=== PATIENT | male | born 1950 | race African-American/Black ===

== ENCOUNTER 2019-06-15 08:02 | Inpatient (IN) | payer MEDICARE ==
[2019-06-15 14:23] VITALS: BMI 35.2
[2019-06-15] MEDS ORDERED: Dextrose 5% in Water 1,000 ML IV PRN (15:04)
[2019-06-15] MEDS ORDERED: Dextrose 50% Abboject 50 ML SYRINGE SLOW IVP PRN (15:04)
[2019-06-15] MEDS ORDERED: HumaLOG 300 UNITS/3 ML VIAL SC PRN (15:04)
[2019-06-15 15:13] LABS: #Basophils 0.1 thou/uL (0.0-0.2); #Eosinphils 0.3 thou/uL (0.0-0.7); #Lymphocytes 2.2 thou/uL (1.20-3.40); #Monocytes 0.5 thou/uL (0.11-0.59); #Neutrophils 4.6 thou/uL (1.40-6.50); %Basophils 0.7 % (0.0-1.0); %Eosinophils 3.5 % (0.0-10.0); %Lymphocytes 28.7 % (21.0-51.0); %Neutrophils 60.2 % (42.0-75.0); Hemoglobin 11.9 g/dL (14.0-18.0); Mean Corpuscular HGB CONC 32.8 g/dL (32.0-36.0); Mean Corpuscular Hemoglobin 26.3 pg (27.0-31.0); Mean Corpuscular Volume 80.1 fL (78.0-98.0); Mean Platelet Volume 7.1 fL (7.4-10.4); Platelet Count 341 thou/uL (130-400); RBC Distribution Width 13.6 % (11.5-14.5); Red Blood Cell (RBC) Count 4.52 mill/uL (4.70-6.10); White Blood Cell (WBC) Count 7.7 thou/uL (4.8-10.8)
--- NOTE | 2019-06-15 15:14 | PDOC.HHP ---
Hospitalist HPI - History of Present Illness Right foot infection History of Present Illness: Mr. Mcallister states he is being transferred due to right foot infection going into his bone. At this present time he denies any complaints. States initially his entire foot was swollen and warm extending up to his mid calf. That has completely resolved. She has continued to have dressing changes at [place] before being transferred here. States he had initially stepped on a stable that was in his shoe and he removed it himself. Xrays done at [place] had shown errosions involving the 1st MTP joint, concerning for osteomyelitis. He has been on abx with Zosyn and Vanc. Per Dr. Garcia patient has been transferred for surgical assessment, +/- cardiac clearance. If no debridement required, patient would still need to be transferred for PICC line placement as he will likely require extensive course of antibiotics. Cultures obtained were positive for S. Aureus and Enterobacter cloacae complex. Hospitalist ROS - Review of Systems Constitutional: denies: fever, chills, sweats, weakness, malaise, other Eyes: denies: pain, vision change, conjunctivae inflammation, eyelid inflammation, redness, other ENT: denies: ear pain, ear discharge, nose pain, nose discharge, nose congestion , mouth pain, mouth swelling, throat pain, throat swelling, other Respiratory: denies: cough, dry, shortness of breath, hemoptysis, SOB with excertion, pleuritic pain, sputum, wheezing, other Cardiovascular: denies: chest pain, palpitations, orthopnea, paroxysmal noc. dyspnea, edema, light headedness, other Gastrointestinal: denies: nausea, vomiting, abdominal pain, diarrhea, constipation, melena, hematochezia, other Genitourinary: denies: dysuria, frequency, incontinence, hematuria, retention, other Musculoskeletal: denies: neck pain, shoulder pain, arm pain, back pain, hand pain, leg pain, foot pain, other Skin: denies: rash, lesions, nestor, bruising, other Neurological: denies: weakness, numbness, incoordination, change in speech, confusion, seizures, other Hospitalist History - Past Medical History Cardiac: reports: CAD, CHF, HTN, Hyperlipidemia Endocrine: reports: Diabetes (IDDM) - Past Surgical History Past Surgical History: reports: no pertinent history - Social History Smoking Status: Never smoker Alcohol: reports: None Drugs: reports: none Living Situation: With Family Activity level: independent ambulation - Exam General Appearance: NAD, awake alert Eye: PERRL, anicteric sclera ENT: normocephalic atraumatic, no oropharyngeal lesions, moist mucosa Neck: supple, symmetric, no JVD, no thyromegaly, no lymphadenopathy, no carotid bruit Heart: RRR, no murmur, no gallops, no rubs, normal peripheral pulses Respiratory: CTAB, no wheezes, no rales, no ronchi, normal chest expansion, no tachypnea, normal percussion Gastrointestinal: soft, non-tender, non-distended, normal bowel sounds, no palpable masses Gastrointestinal - other findings: obese Extremities: no cyanosis, no clubbing, no edema Extremities - other findings: dressing to base of right great toe, no erythema or swelling Skin: normal turgor, no lesions, no rashes Neurological: cranial nerve grossly intact, normal sensation to touch, no weakness, no focal deficits, no new deficit Musculoskeletal: normal tone, normal strength, no muscle wasting Psychiatric: normal affect, normal behavior, A&O x 3 Hospitalist Results - Radiology Interpretation Other Status: report reviewed by or Hospitalist H&P A/P - Problem (1) Cellulitis of right lower extremity Code(s): L03.115 - CELLULITIS OF RIGHT LOWER LIMB Status: Acute (2) Diabetic infection of right foot Code(s): E11.628 - TYPE 2 DIABETES MELLITUS WITH OTHER SKIN COMPLICATIONS; L08.9 - LOCAL INFECTION OF THE SKIN AND SUBCUTANEOUS TISSUE, UNSP Status: Acute (3) Coronary artery disease Code(s): I25.10 - ATHSCL HEART DISEASE OF [place] CORONARY ARTERY W/O ANG PCTRS Status: Chronic (4) Diabetes mellitus type 2 with neurological manifestations Code(s): E11.49 - TYPE 2 DIABETES W OTH DIABETIC NEUROLOGICAL COMPLICATION Status: Chronic (5) Dyslipidemia Code(s): E78.5 - HYPERLIPIDEMIA, UNSPECIFIED Status: Chronic (6) Essential hypertension Code(s): I10 - ESSENTIAL (PRIMARY) HYPERTENSION Status: Chronic (7) Chronic CHF Code(s): I50.9 - HEART FAILURE, UNSPECIFIED Status: Chronic - Plan Plan: Continue IV Abx. Pharmacy to dose. Consult to Surgery re: concern for osteomyelitis. Consult wound care. Further imaging as per surgical team. Consult Cardiology re: surgical clearance Consult Dr. Nieto (infectious disease) Obtain repeat labs including lactic acid and BNP. Continue gentle hydration. Monitor BP and glucose. Resume home meds once verified. CODE STATUS FULL Surrogate decision maker is his :
[2019-06-15 15:31] LABS: Lactic Acid 1.6 mmol/L (0.5-2.2)
[2019-06-15 15:35] LABS: ALT (SGPT) 29 U/L (8-55); AST (SGOT) 18 U/L (5-34); Albumin 3.9 g/dL (3.4-4.8); Alkaline Phosphatase 128 U/L (40-110); Anion Gap 12 mmol/L (10-20); BUN (Urea Nitrogen) 7 mg/dL (8.4-25.7); Bilirubin, Total 0.3 mg/dL (0.2-1.2); Calc. Creatinine Clearance 117 mL/min (70-130); Calcium 9.1 mg/dL (7.8-10.44); Carbon Dioxide 26 mmol/L (23-31); Chloride 105 mmol/L (98-107); Estimated GFR-MDRD Greater than 90; Globulin 3.3 g/dL (2.4-3.5); Glucose 196 mg/dL (80-115); Magnesium 2.1 mg/dL (1.6-2.6); Potassium 3.9 mmol/L (3.5-5.1); Protein, Total 7.2 g/dL (5.8-8.1); Sodium 139 mmol/L (136-145)
[2019-06-15] MEDS ORDERED: Vancomycin HCl 1.75 GM in Sodium Chloride 0.9% 500 ML IVPB SCH (16:00)
[2019-06-15] MEDS: Sodium Chloride 0.9% 1,000 ML IV SCH (16:51)
[2019-06-15] MEDS ORDERED: HumaLOG 300 UNITS/3 ML VIAL SC SCH (17:00)
[2019-06-15] MEDS ORDERED: Piperacillin/Tazobactam 4.5 GM in Sodium Chloride 0.9% 100 ML IVPB SCH (18:00)
--- NOTE | 2019-06-15 18:26 | CON ---
DATE OF CONSULTATION: 06/15/2019 REASON FOR CONSULTATION: Right first toe puncture wound with inflammatory changes. HISTORY OF PRESENT ILLNESS: A 69-year-old gentleman with history of type 2 diabetes, neuropathy, and ischemic cardiomyopathy, who sustained a puncture wound to the right great toe from yunior that penetrated through his shoe and remained there for a while because of his neuropathy. Dr. Garcia in [place] saw him and gave him a recommendation for admission, but he declined it, so she prescribed Keflex, Bactrim, and a dose of Rocephin and now, he is admitted to the hospital. An x- ray showed some areas in the joint of some osteolysis, which could be unrelated to the process itself. He is feeling okay right now. He does not have any pain. No respiratory symptoms or abdominal pain or diarrhea. No HEENT symptoms. No back pain. PAST MEDICAL HISTORY: Type 2 diabetes, hypertension, neuropathy, ischemic cardiomyopathy, CHF, and hyperlipidemia. PAST SURGICAL HISTORY: Negative. ALLERGIES: NONE OF SIGNIFICANCE. FAMILY HISTORY: Type 2 diabetes. SOCIAL HISTORY: Quit smoking about 18 years ago. Works in construction. He is , lives in [facility]. Quit drinking many years ago. CURRENT MEDICATIONS: 1. P.R.N. medications. 2. Coreg. 3. Lipitor. 4. Lasix. 5. Insulin. 6. Furosemide. 7. Zosyn. 8. Vancomycin. PHYSICAL EXAMINATION: VITAL SIGNS: T-max 98.4, blood pressure 140/81, pulse 77, respirations 18, and O2 saturation 100. SKIN: Shows the right hallux volar aspect with a very small puncture wounds, very little inflammatory change noticed. No tenderness. Peripheral IV access. No lymphadenopathy. HEENT: Noncontributory. NECK: Supple. LUNGS: Symmetric clear breath sounds. HEART: S1 and S2. Regular rate. No S3 or S4. ABDOMEN: Soft, not distended or tender. No ascites. No bladder distention. No joint inflammatory activity outside of the involved area. Pulses are 1+ in popliteal, dorsalis pedis and posterior tibialis. Cap refill normal. NEURO: Nonfocal. LABORATORY DATA: Chemistry essentially normal except for glucose 196 and alkaline phosphatase 128. White cell count 7.7, hemoglobin 11.9, and platelets 341 with normal differential. Microbiology with quite broad susceptibility for both organisms. There is a foot x-ray from June 11 with no foreign body noted, erosions at the first interphalangeal joint, and multiple osseous defects in the first distal phalanx of uncertin significance. ASSESSMENT AND PLAN: Type 2 diabetes, neuropathy, and puncture wound right hallux with some inflammatory change with concern for osteomyelitis. I looked at the films and the cortex seems to be preserved. The osseous defects are seen to be within the distal phalanx. We will go ahead and order an MRI to see what it shows and go from there. We will switch him to [facility]. Job ID: [id number] [facility]
[2019-06-15] MEDS: Insulin Glargine 35 UNITS in Pre-Filled Syringe 1 EACH SC SCH (20:49)
[2019-06-15] MEDS: Furosemide 40 MG TAB PO SCH (20:49)
[2019-06-15] MEDS: Carvedilol 6.25 MG TAB PO SCH (20:49)
[2019-06-15] MEDS: Famotidine/PF 20 mg/2ml Vial SLOW IVP SCH (20:49)
[2019-06-15] MEDS: Cefepime 2 GM in Sodium Chloride 0.9% 100 ML IVPB SCH (21:48)
--- NOTE | 2019-06-16 02:20 | CON ---
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 The patient is admitted by Dr. Adamson, seen by Dr. Nieto. His white count is 7, hemoglobin 11.9. Glucose 196. Plain x-rays do not reveal any obvious osteomyelitis. MRI scan had been ordered. Evaluation reveals plantar right great toe, has a wound that communicates to the mid phalanx. There is no purulence. No edema, however. The patient has palpable dorsalis pedis pulse. He is a nonsmoker. Recommendation at this time would be local wound care, packing the wound with Nu Gauze, antibiotics per Dr. Nieto, and hopefully we can salvage his toe. I told him, however, that there is a chance that if this worsens, he may have to undergo an amputation of his great toe, but we will hopefully can avoid that. ALLERGIES: NO MEDICAL. SOCIAL HISTORY: Tobacco, none. Alcohol, none. MEDICATIONS: 1. Losartan 50 mg daily. 2. Furosemide 40 mg b.i.d. 3. Lipitor 40 mg daily. 4. Aspirin 325 mg daily. 5. Tylenol 650 mg p.r.n. 6. Vancomycin IV. 7. Zosyn IV. 8. Insulin 35 units at bedtime. 9. Carvedilol 12.5 mg b.i.d. 10. Tums p.r.n. PAST SURGICAL HISTORY: Noncontributory. PAST MEDICAL HISTORY: Diabetes mellitus, hypertension. PHYSICAL EXAMINATION: VITAL SIGNS: 6 foot, 260 pounds, 35 BMI, 98 degrees, 77, 143/81. HEAD, EARS, EYES, NOSE AND THROAT: Unremarkable. LUNGS: Clear to auscultation. CARDIAC: : Regular rate and rhythm without murmur or gallop. ABDOMEN: Soft and nontender. EXTREMITIES: Palpable femoral, popliteal, dorsalis pedis pulses bilaterally. Right great toe plantar opening defect extending into the phalanx on probing with a Q-tip. There is no purulence. There is no redness. There is no edema. There is no cellulitis. LABORATORY DATA: BUN 7, creatinine 0.98. White count 7 and hemoglobin 11.9. ASSESSMENT AND PLAN: Diabetic right great toe wound, traumatic after stepping on a staple. We would plan as above. Job ID: [id number]
[2019-06-16 05:26] LABS: #Eosinphils 0.2 thou/uL (0.0-0.7); #Lymphocytes 2.1 thou/uL (1.20-3.40); #Monocytes 0.6 thou/uL (0.11-0.59); #Neutrophils 4.2 thou/uL (1.40-6.50); %Basophils 0.4 % (0.0-1.0); %Eosinophils 3.3 % (0.0-10.0); %Lymphocytes 29.9 % (21.0-51.0); %Monocytes 7.9 % (0.0-10.0); %Neutrophils 58.5 % (42.0-75.0); Hemoglobin 11.3 g/dL (14.0-18.0); Mean Corpuscular HGB CONC 31.9 g/dL (32.0-36.0); Mean Corpuscular Hemoglobin 25.6 pg (27.0-31.0); Mean Corpuscular Volume 80.5 fL (78.0-98.0); Platelet Count 324 thou/uL (130-400); RBC Distribution Width 13.6 % (11.5-14.5); Red Blood Cell (RBC) Count 4.39 mill/uL (4.70-6.10); White Blood Cell (WBC) Count 7.1 thou/uL (4.8-10.8)
[2019-06-16 05:46] LABS: Anion Gap 11 mmol/L (10-20); BUN (Urea Nitrogen) 7 mg/dL (8.4-25.7); Calc. Creatinine Clearance 138 mL/min (70-130); Calcium 8.8 mg/dL (7.8-10.44); Carbon Dioxide 24 mmol/L (23-31); Chloride 107 mmol/L (98-107); Estimated GFR-MDRD Greater than 90; Glucose 149 mg/dL (80-115); Potassium 3.6 mmol/L (3.5-5.1); Sodium 138 mmol/L (136-145)
[2019-06-16] MEDS: HumaLOG 300 UNITS/3 ML VIAL SC PRN ×3 (06:24→17:06)
[2019-06-16] MEDS: Aspirin 325 MG TAB PO SCH (08:48)
[2019-06-16] MEDS: Potassium Chloride 20 MEQ TAB PO SCH (08:48)
[2019-06-16] MEDS: Carvedilol 6.25 MG TAB PO SCH ×2 (08:49→20:15)
[2019-06-16] MEDS: Famotidine/PF 20 mg/2ml Vial SLOW IVP SCH ×2 (08:49→20:15)
[2019-06-16] MEDS: Furosemide 40 MG TAB PO SCH ×2 (08:49→20:15)
[2019-06-16] MEDS: Losartan 25 MG TAB PO SCH (08:50)
[2019-06-16] MEDS: Atorvastatin Calcium 40 MG TAB PO SCH (08:51)
[2019-06-16] MEDS: Cefepime 2 GM in Sodium Chloride 0.9% 100 ML IVPB SCH ×2 (08:52→20:15)
[2019-06-16] MEDS: Sodium Chloride 0.9% 1,000 ML IV SCH (08:52)
--- NOTE | 2019-06-16 09:35 | CON ---
DATE OF CONSULTATION: 06/16/2019 INDICATION FOR CONSULTATION: A 69-year-old patient with history of coronary artery disease, who has developed a right great toe infection. The patient requested that he see Cardiology prior to undergoing any type of surgical procedure and to ensure that his heart is okay. He has been seen by Dr. Deleon in the past. He did undergo cardiac catheterization in 2013, which showed distal left anterior descending artery stenosis about 60%. He was advised medical treatment. He has done relatively well since that time. He was last seen in the office in August of 2014, saying that he would not have finances in order to come to the office; however, he does have Medicare. He continues to work some. He is self-employed, doing carpentry work. He has had no other significant complaints of chest pain or shortness of breath. He remains very active. He does have hypertension, hypercholesterolemia, and diabetes. He smoked in the past, but stopped about 20 years ago. His family history is noncontributory at this time. PAST MEDICAL HISTORY: Significant for diabetes; hypertension; coronary artery disease as noted above; congestive heart failure with ejection fraction of 40% to 45% by last echocardiogram in December of 2013, however, he did have echocardiogram today, will be reviewed. He does have hypercholesterolemia. He has diabetic neuropathy. He has also had some history of cellulitis in the past of both lower extremities about 10 to 12 years ago, this resolved after treatment. SOCIAL HISTORY: He is . He stopped smoking in the past. He has no significant alcohol use. 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 FAMILY HISTORY: Noncontributory. ALLERGIES: NONE. REVIEW OF SYSTEMS: He complains of some hearing loss. He has gastroesophageal reflux disease. Otherwise, review of systems is unremarkable except for what was noted in the history of present illness. PHYSICAL EXAMINATION: VITAL SIGNS: Stable. His most recent blood pressure is 147/89. He is afebrile. Respiratory rate 16, pulse is 94, shows a sinus rhythm. HEENT: Shows the head to be normocephalic and atraumatic. NECK: Carotid pulses are present. There were no bruits. There is no JVD. The thyroid did not appear to be enlarged. CHEST: Clear to auscultation without rales, rhonchi, or wheezing. CARDIOVASCULAR: Reveals a regular rate and rhythm. He does have a systolic murmur at the apex, approximately 2 to 3/6. There were no heaves or thrills noted. ABDOMEN: Soft and nontender. Positive bowel sounds are present. There was no organomegaly or masses noted. Femoral pulses are present. EXTREMITIES: Show no clubbing, cyanosis, or edema. Pedal pulses are all palpable. He does have a small ulceration on the bottom surface of the right great toe. NEUROLOGIC: He appears to be within normal limits. There were no gross focal motor deficits. He has normal strength and tone for someone of his age. LABORATORY DATA: Shows a hemoglobin of 11.3, hematocrit 35.3, WBC of 7.1, platelet count 324,000. Sodium was 138, potassium 3.6, BUN was 11, creatinine 0.83, and blood sugar of 154. DIAGNOSTIC STUDIES: EKG: sinus rhythm at least by the echocardiogram. I do not see an EKG in the chart, we will request one. I have now reviewed the echocardiogram, it shows ejection fraction 45% to 50%. He does have diastolic dysfunction. He also has moderate mitral valve regurgitation, mild aortic valve sclerosis, but no significant gradient was noted across the valve. Otherwise, echocardiogram was unremarkable. IMPRESSION: 1. Right great toe infection with possible osteomyelitis. He is being seen by the surgeons. He may need to undergo possible amputation. Should he need to undergo surgical procedure, given the fact that he continues to work, has minimal symptoms and does heavy physical labor and has an ejection fraction of 45% to 50%, whereas previously ejection fraction was 40% to 45% in 2014. I would suggest that he is stable enough to undergo the procedure if necessary. In the future, I would advise him to undergo stress testing to rule out progression of coronary artery disease since he has not been seen in the office in about 5 years and also has a history of diabetes, hypertension, hypercholesterolemia. 2. Diabetes type 2. This is under relatively reasonable control. It is dealt with by the primary care service. 3. Coronary artery disease, this remains stable, but certainly given his risk factors, this may have progressed, but he does not show any such symptoms of ischemia at this time. 4. Hypercholesterolemia. We would suggest he continue on his Lipitor. 5. Hypertension. This is under reasonable control. We will continue his present medications. We are more than happy to continue to follow the patient with you , but would advise him to continue his followup with Dr. Deleon at least on a yearly basis. Job ID: [id number] [facility]
--- NOTE | 2019-06-16 10:54 | MRI ---
MRI RIGHT FOOT WITH AND WITHOUT CONTRAST: HISTORY: Puncture wound of the right toe with inflammatory changes. COMPARISON: Prior radiographs from 06/11/2019. FINDINGS: On the T1 weighted imaging sequence, there is some loss of normal marrow signal in the proximal phala nx head and distal phalanx base great toe interphalangeal joint. There is associated abnormal enhance ment and fluid signal associated with this. The remainder of the toes are without marrow signal repla cement. SOFT TISSUES: There is a plantar soft tissue ulcer at the level of the great toe interphalangeal join t with a sinus tract from the skin, which is peripherally enhancing, extending into the interphalange al joint. This collection measures 11 mm in length x 6 mm in width x 11 mm craniocaudal dimension. MUSCLES: There is mild muscular edema with atrophy of the intrinsic muscles of the foot. TENDONS: Mild tenosynovitis of the flexor hallucis longus, near the interphalangeal joint, without si gnificant proximal migration of inflammatory fluid. IMPRESSION: Osteomyelitis and septic arthritis, great toe interphalangeal joint, from a soft tissue wound with si nus tract extending to the medial margin of the interphalangeal joint, as described. POS: [facility]
--- NOTE | 2019-06-16 11:26 | PDOC.HOSPP ---
- Subjective Encounter Date: 06/16/19 Encounter Time: 11:24 Subjective: Patient without any complaints. States he is feeling well and has been up for a walk this morning. Tolerating oral intake this morning. No n/v. Denies any chest pain or sob. No fevers, chills or sweats. Pain involving foot is well controlled. - Objective Vital Signs & Weight: Vital Signs (12 hours) Temp Pulse Resp BP BP Pulse Ox 06/16/19 10:42 97.7 F 100 18 150/81 H 99 06/16/19 08:49 147/89 H 06/16/19 08:10 97 06/16/19 07:49 98.4 F 94 16 147/89 H 97 06/16/19 04:00 98.3 F 92 18 149/85 H 100 06/16/19 00:30 98.6 F 86 18 125/64 100 Weight Weight 260 lb I&O: 06/15/19 06/16/19 06/17/19 06:59 06:59 06:59 Intake Total 1180 350 Balance 1180 350 Result Diagrams: 06/16/19 05:01 06/16/19 05:01 Additional Labs: Accuchecks 06/16/19 06/15/19 06/15/19 05:19 20:28 16:14 POC Glucose 154 H 166 H 168 H Hospitalist ROS - Review of Systems Constitutional: denies: fever, chills, sweats, weakness, malaise, other Eyes: denies: pain, vision change, conjunctivae inflammation, eyelid inflammation, redness, other ENT: denies: ear pain, ear discharge, nose pain, nose discharge, nose congestion , mouth pain, mouth swelling, throat pain, throat swelling, other Cardiovascular: denies: chest pain, palpitations, orthopnea, paroxysmal noc. dyspnea, edema, light headedness, other Gastrointestinal: denies: nausea, vomiting, abdominal pain, diarrhea, constipation, melena, hematochezia, other Genitourinary: denies: dysuria, frequency, incontinence, hematuria, retention, other Musculoskeletal: reports: foot pain (well-controlled). denies: neck pain, shoulder pain, arm pain, back pain, hand pain, leg pain, other Skin: denies: rash, lesions, nestor, bruising, other Neurological: denies: weakness, numbness, incoordination, change in speech, confusion, seizures, other - Medication Medications: Active Medications Generic Name Dose Route Start Last Admin Trade Name Scottq PRN Reason Stop Dose Admin Aspirin 325 mg 06/16/19 09:00 06/16/19 08:48 Aspirin PO 325 mg DAILY ROSA MARIA Administration Atorvastatin Calcium 40 mg 06/16/19 09:00 06/16/19 08:51 Lipitor PO 40 mg DAILY ROSA MARIA Administration Carvedilol 12.5 mg 06/15/19 21:00 06/16/19 08:49 Coreg PO 12.5 mg BID ROSA MARIA Administration Famotidine 20 mg 06/15/19 21:00 06/16/19 08:49 Pepcid SLOW IVP 20 mg Q12HR ROSA MARIA Administration Furosemide 40 mg 06/15/19 21:00 06/16/19 08:49 Lasix PO 40 mg BID ROSA MARIA Administration Sodium Chloride 1,000 mls @ 65 mls/hr 06/15/19 15:15 06/16/19 08:52 Normal Saline 0.9% IV 1,000 mls .[id number] ROSA MARIA Administration Insulin Glargine 35 units/ 0.35 mls @ 0 mls/hr 06/15/19 21:00 06/15/19 20:49 Miscellaneous Medication SC 0.35 mls HS ROSA MARIA Administration Cefepime HCl 2 gm/ Sodium 100 mls @ 200 mls/hr 06/15/19 21:00 06/16/19 08:52 Chloride IVPB 100 mls Q12HR ROSA MARIA Administration Insulin Human Lispro 0 units 06/15/19 15:04 06/16/19 06:24 Humalog SC 2 unit .MILD SLIDING SCALE PRN Administration Mild Correctional Scale Losartan Potassium 50 mg 06/16/19 09:00 06/16/19 08:50 Cozaar PO 50 mg DAILY ROSA MARIA Administration Potassium Chloride 20 meq 06/16/19 09:00 06/16/19 08:48 K-Dur PO 20 meq DAILY ROSA MARIA Administration - Exam General Appearance: NAD, awake alert Eye: PERRL, anicteric sclera ENT: normocephalic atraumatic, no oropharyngeal lesions, moist mucosa Neck: supple, symmetric, no JVD, no thyromegaly, no lymphadenopathy Heart: RRR, no murmur, no gallops, no rubs, normal peripheral pulses Respiratory: CTAB, no wheezes, no rales, no ronchi, normal chest expansion, no tachypnea, normal percussion Gastrointestinal: soft, non-tender, non-distended, no guarding, no rigidity Skin - other findings: wound of right great tose base, dressing in place, no erythema/swelling Neurological: cranial nerve grossly intact Musculoskeletal: normal tone, normal strength, no muscle wasting Psychiatric: normal affect, normal behavior, A&O x 3 Hosp A/P (1) Osteomyelitis Code(s): M86.9 - OSTEOMYELITIS, UNSPECIFIED Status: Acute Qualifiers: Osteomyelitis location: foot Laterality: right Plan: Seen by Dr. Nieto who advised IV Abx treatment with Rocephin. Meds adjusted accordingly. Patient seen and examined by Dr. Gray yesterday. MRI done showing osteomyelitis and septic arthritis, great toe IP joint from the soft tissue wound with sinus tract extending to the medial margin of the IP joint. Likely to have amputation, awaiting surgical review for recommendations. Wound culture obtained at [place], obtain results. (2) Diabetic infection of right foot Code(s): E11.628 - TYPE 2 DIABETES MELLITUS WITH OTHER SKIN COMPLICATIONS; L08.9 - LOCAL INFECTION OF THE SKIN AND SUBCUTANEOUS TISSUE, UNSP Status: Acute Plan: Continue wound care. (3) Coronary artery disease Code(s): I25.10 - ATHSCL HEART DISEASE OF [place] CORONARY ARTERY W/O ANG PCTRS Status: Chronic Plan: Cleared by Dr. Pinto for surgery. Echo done: 45-50% EF. Mild TR/HI and moderate MR. Recommended stress test at some point in the future. (4) Diabetes mellitus type 2 with neurological manifestations Code(s): E11.49 - TYPE 2 DIABETES [facility] DIABETIC NEUROLOGICAL COMPLICATION Status: Chronic Plan: Continue monitor glucose. (5) Dyslipidemia Code(s): E78.5 - HYPERLIPIDEMIA, UNSPECIFIED Status: Chronic (6) Essential hypertension Code(s): I10 - ESSENTIAL (PRIMARY) HYPERTENSION Status: Chronic Plan: Continue to monitor BP. (7) Chronic CHF Code(s): I50.9 - HEART FAILURE, UNSPECIFIED Status: Chronic - Plan continue antibiotics, incentive spirometry, out of bed/ambulate
--- NOTE | 2019-06-16 16:07 | PRG ---
DATE OF SERVICE: 06/16/2019 SUBJECTIVE: Feeling well. No major pain. No respiratory symptoms or abdominal pain. No diarrhea. OBJECTIVE: VITAL SIGNS: Normal. LUNGS: Clear. HEART: S1 and S2. Regular rate. ABDOMEN: Soft. Not distended or tender. No ascites. : No bladder distention. EXTREMITIES: Right foot about the same with small little opening. LABORATORY DATA: Sodium 138. Creatinine 0.83. White cell count 7.1. IMAGING STUDIES: MRI showed osteomyelitis and septic arthritis of the 1st interphalangeal joint. There is a little sinus tract extending to the medial margin of the interphalangeal joint. ASSESSMENT AND DISCUSSION: Type 2 diabetes, neuropathy, puncture wound in the right hallux with osteomyelitis and septic arthritis. Organisms isolated. We will treat him with Rocephin and vancomycin or Rocephin and daptomycin for protracted periods of time. PICC line placement. If it fails, then we will need amputation. Discussed with Dr. Gray, who kindly called me about this management and decision process. Job ID: [id number]
[2019-06-16] MEDS: Insulin Glargine 35 UNITS in Pre-Filled Syringe 1 EACH SC SCH (22:13)
[2019-06-17] MEDS ORDERED: Diabetic Tussin 200 MG/10 ML UDCUP PO PRN (03:57)
[2019-06-17] MEDS ORDERED: Cepastat Lozenges 1 LOZ PO PRN (03:57)
[2019-06-17 05:59] LABS: #Eosinphils 0.2 thou/uL (0.0-0.7); #Monocytes 0.5 thou/uL (0.11-0.59); %Basophils 0.5 % (0.0-1.0); %Eosinophils 3.4 % (0.0-10.0); %Lymphocytes 29.5 % (21.0-51.0); %Monocytes 7.3 % (0.0-10.0); %Neutrophils 59.4 % (42.0-75.0); Hemoglobin 11.2 g/dL (14.0-18.0); Mean Corpuscular HGB CONC 32.4 g/dL (32.0-36.0); Mean Corpuscular Hemoglobin 26.1 pg (27.0-31.0); Mean Corpuscular Volume 80.6 fL (78.0-98.0); Mean Platelet Volume 6.8 fL (7.4-10.4); Platelet Count 334 thou/uL (130-400); RBC Distribution Width 13.4 % (11.5-14.5); Red Blood Cell (RBC) Count 4.28 mill/uL (4.70-6.10); White Blood Cell (WBC) Count 6.7 thou/uL (4.8-10.8)
[2019-06-17 06:15] LABS: Anion Gap 12 mmol/L (10-20); BUN (Urea Nitrogen) 7 mg/dL (8.4-25.7); Calc. Creatinine Clearance 133 mL/min (70-130); Calcium 8.9 mg/dL (7.8-10.44); Carbon Dioxide 24 mmol/L (23-31); Chloride 106 mmol/L (98-107); Estimated GFR-MDRD Greater than 90; Glucose 187 mg/dL (80-115); Potassium 3.6 mmol/L (3.5-5.1); Sodium 138 mmol/L (136-145)
[2019-06-17] MEDS: Sodium Chloride 0.9% 1,000 ML IV SCH (06:30)
[2019-06-17] MEDS: HumaLOG 300 UNITS/3 ML VIAL SC PRN ×3 (06:57→16:39)
[2019-06-17] MEDS: Aspirin 325 MG TAB PO SCH (07:21)
[2019-06-17] MEDS ORDERED: Zolpidem Tartrate 5 MG TAB PO PRN (08:08)
[2019-06-17] MEDS ORDERED: Ondansetron PF 4 MG/2 ML Vial IVP PRN (08:08)
[2019-06-17] MEDS ORDERED: Loratadine 10 MG TAB PO PRN (08:08)
[2019-06-17] MEDS ORDERED: Loperamide HCl 2 MG CAP PO PRN (08:08)
[2019-06-17] MEDS ORDERED: Ondansetron ODT 4 MG TAB SL PRN (08:08)
[2019-06-17] MEDS ORDERED: Bisacodyl 5 MG TAB PO PRN (08:08)
[2019-06-17] MEDS ORDERED: Calcium Carbonate 500 MG ChewTAB PO PRN (08:08)
[2019-06-17] MEDS ORDERED: Sodium Chloride 0.65% Nasal 44 ML BOT EA NARE PRN (08:08)
[2019-06-17] MEDS ORDERED: hydrALAZINE 20 MG/ML VIAL SLOW IVP PRN (08:08)
[2019-06-17] MEDS: Carvedilol 6.25 MG TAB PO SCH ×2 (08:24→20:00)
[2019-06-17] MEDS: Atorvastatin Calcium 40 MG TAB PO SCH (08:26)
[2019-06-17] MEDS: Furosemide 40 MG TAB PO SCH ×2 (08:26→20:01)
[2019-06-17] MEDS: Potassium Chloride 20 MEQ TAB PO SCH (08:26)
[2019-06-17] MEDS: Losartan 25 MG TAB PO SCH (08:26)
[2019-06-17] MEDS ORDERED: guaiFENesin ER 600 MG TAB PO SCH (09:00)
--- NOTE | 2019-06-17 09:31 | EKG ---
Test Reason : Blood Pressure : / mmHG Vent. Rate : 103 BPM Atrial Rate : 103 BPM P-R Int : 218 ms QRS Dur : 080 ms QT Int : 350 ms P-R-T Axes : 069 027 050 degrees QTc Int : 458 ms Sinus tachycardia with 1st degree A-V block small inferior Q waves of questionable significance Otherwise normal ECG No previous ECGs available Confirmed by DR. Lamar HAWLEY ([id number]) on 06/17/2019 9:31:23 AM Referred By: AJIT Confirmed By:DR. Lamar HAWLEY
[2019-06-17] MEDS: Cefepime 2 GM in Sodium Chloride 0.9% 100 ML IVPB SCH ×2 (10:18→20:01)
--- NOTE | 2019-06-17 11:55 | PDOC.HOSPP ---
- Subjective Encounter Date: 06/17/19 Encounter Time: 09:00 Subjective: Patient seen and examined. No new complaints. No overnight events - Objective Vital Signs & Weight: Vital Signs (12 hours) Temp Pulse Resp BP Pulse Ox 06/17/19 11:28 98.3 F 81 16 144/83 H 98 06/17/19 07:49 98.3 F 88 16 162/93 H 97 06/17/19 04:00 98.2 F 85 16 137/72 98 06/17/19 00:01 98.7 F 88 16 157/81 H 97 Weight Admit Weight 260 lb Weight 260 lb I&O: 06/16/19 06/17/19 06/18/19 06:59 06:59 06:59 Intake Total 1180 2880 Output Total 1100 Balance 1180 1780 Result Diagrams: 06/17/19 05:42 06/17/19 05:42 Additional Labs: Accuchecks 06/17/19 06/16/19 06/16/19 06:39 22:16 16:19 POC Glucose 198 H 209 H 198 H Radiology Reviewed by me: Yes Hospitalist ROS - Review of Systems ENT: denies: ear pain, ear discharge, nose pain, nose discharge, nose congestion , mouth pain, mouth swelling, throat pain, throat swelling, other Respiratory: denies: cough, dry, shortness of breath, hemoptysis, SOB with excertion, pleuritic pain, sputum, wheezing, other Cardiovascular: denies: chest pain, palpitations, orthopnea, paroxysmal noc. dyspnea, edema, light headedness, other Gastrointestinal: denies: nausea, vomiting, abdominal pain, diarrhea, constipation, melena, hematochezia, other Genitourinary: denies: dysuria, frequency, incontinence, hematuria, retention, other Musculoskeletal: denies: neck pain, shoulder pain, arm pain, back pain, hand pain, leg pain, foot pain, other - Medication Medications: Active Medications Generic Name Dose Route Start Last Admin Trade Name Freq PRN Reason Stop Dose Admin Aspirin 325 mg 06/16/19 09:00 06/17/19 07:21 Aspirin PO Not Given DAILY [facility] Atorvastatin Calcium 40 mg 06/16/19 09:00 06/17/19 08:26 Lipitor PO 40 mg DAILY [facility] Administration Carvedilol 12.5 mg 06/15/19 21:00 06/17/19 08:24 Coreg PO 12.5 mg BID ROSA MARIA Administration Furosemide 40 mg 06/15/19 21:00 06/17/19 08:26 Lasix PO 40 mg BID ROSA MARIA Administration Insulin Glargine 35 units/ 0.35 mls @ 0 mls/hr 06/15/19 21:00 06/16/19 22:13 Miscellaneous Medication SC 0.35 mls HS ROSA MARIA Administration Cefepime HCl 2 gm/ Sodium 100 mls @ 200 mls/hr 06/15/19 21:00 06/17/19 10:18 Chloride IVPB 100 mls Q12HR ROSA MARIA Administration Losartan Potassium 50 mg 06/16/19 09:00 06/17/19 08:26 Cozaar PO 50 mg DAILY ROSA MARIA Administration Potassium Chloride 20 meq 06/16/19 09:00 06/17/19 08:26 K-Dur PO 20 meq DAILY ROSA MARIA Administration - Exam General Appearance: NAD, awake alert Eye: PERRL, anicteric sclera ENT: normocephalic atraumatic, no oropharyngeal lesions Neck: supple, symmetric, no JVD Heart: RRR, no murmur, no gallops Respiratory: CTAB, no wheezes, no rales, no ronchi Gastrointestinal: soft, non-tender, non-distended Extremities: no cyanosis, no clubbing Skin: normal turgor, no lesions Neurological: no focal deficits Musculoskeletal: normal tone, normal strength Psychiatric: normal affect, normal behavior Hosp A/P (1) Osteomyelitis Code(s): M86.9 - OSTEOMYELITIS, UNSPECIFIED Status: Acute Qualifiers: Osteomyelitis location: foot Laterality: right (2) Cellulitis of right lower extremity Code(s): L03.115 - CELLULITIS OF RIGHT LOWER LIMB Status: Acute (3) Diabetic infection of right foot Code(s): E11.628 - TYPE 2 DIABETES MELLITUS WITH OTHER SKIN COMPLICATIONS; L08.9 - LOCAL INFECTION OF THE SKIN AND SUBCUTANEOUS TISSUE, UNSP Status: Acute (4) Coronary artery disease Code(s): I25.10 - ATHSCL HEART DISEASE OF [place] CORONARY ARTERY W/O ANG PCTRS Status: Chronic (5) Dyslipidemia Code(s): E78.5 - HYPERLIPIDEMIA, UNSPECIFIED Status: Chronic (6) Essential hypertension Code(s): I10 - ESSENTIAL (PRIMARY) HYPERTENSION Status: Chronic (7) Ischemic cardiomyopathy Code(s): I25.5 - ISCHEMIC CARDIOMYOPATHY Status: Chronic (8) Obesity (BMI 30-39.9) Code(s): E66.9 - OBESITY, UNSPECIFIED Status: Chronic - Plan old records reviewed/req, plan discussed w/ family, continue antibiotics, 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
--- NOTE | 2019-06-17 13:15 | PRG ---
DATE OF SERVICE: 06/17/2019 Mr. Mcallister is doing well today. Undergoing procedures for outpatient intravenous antibiotics via PICC line. At this point, he should see me in the office in 2-4 weeks. Continue daily wound care consisting of washing his foot with soap and water and applying a Nu Gauze wet-to-dry dressing. The patient can do this along with his or home health can be engaged if necessary or outpatient wound care engaged to follow this on a periodic basis with me seeing him in 2-4 weeks. I will see him as needed this hospitalization. Please call if necessary. Job ID: [id number]
[2019-06-17] MEDS: Insulin Glargine 35 UNITS in Pre-Filled Syringe 1 EACH SC SCH (20:01)
[2019-06-18 06:40] LABS: Anion Gap 15 mmol/L (10-20); BUN (Urea Nitrogen) 12 mg/dL (8.4-25.7); Calc. Creatinine Clearance 129 mL/min (70-130); Calcium 9.5 mg/dL (7.8-10.44); Carbon Dioxide 22 mmol/L (23-31); Chloride 103 mmol/L (98-107); Estimated GFR-MDRD Greater than 90; Glucose 208 mg/dL (80-115); Potassium 4.2 mmol/L (3.5-5.1); Sodium 136 mmol/L (136-145)
[2019-06-18] MEDS: HumaLOG 300 UNITS/3 ML VIAL SC PRN ×3 (07:09→16:30)
[2019-06-18 08:09] LABS: #Eosinphils 0.2 thou/uL (0.0-0.7); #Lymphocytes 2.2 thou/uL (1.20-3.40); #Monocytes 0.5 thou/uL (0.11-0.59); #Neutrophils 4.1 thou/uL (1.40-6.50); %Basophils 0.1 % (0.0-1.0); %Eosinophils 2.9 % (0.0-10.0); %Lymphocytes 31.1 % (21.0-51.0); %Monocytes 6.7 % (0.0-10.0); %Neutrophils 59.2 % (42.0-75.0); Hemoglobin 11.4 g/dL (14.0-18.0); Mean Corpuscular HGB CONC 33.4 g/dL (32.0-36.0); Mean Corpuscular Hemoglobin 26.7 pg (27.0-31.0); Mean Corpuscular Volume 79.9 fL (78.0-98.0); Mean Platelet Volume 7.2 fL (7.4-10.4); Platelet Count 336 thou/uL (130-400); RBC Distribution Width 13.5 % (11.5-14.5); Red Blood Cell (RBC) Count 4.27 mill/uL (4.70-6.10); White Blood Cell (WBC) Count 6.9 thou/uL (4.8-10.8)
[2019-06-18] MEDS: Aspirin 325 MG TAB PO SCH (08:31)
[2019-06-18] MEDS: Potassium Chloride 20 MEQ TAB PO SCH (08:33)
[2019-06-18] MEDS: Cefepime 2 GM in Sodium Chloride 0.9% 100 ML IVPB SCH (08:33)
[2019-06-18] MEDS: Carvedilol 6.25 MG TAB PO SCH (08:33)
[2019-06-18] MEDS: Losartan 25 MG TAB PO SCH (08:34)
[2019-06-18] MEDS: Furosemide 40 MG TAB PO SCH (08:34)
[2019-06-18] MEDS: Atorvastatin Calcium 40 MG TAB PO SCH (08:34)
--- NOTE | 2019-06-18 11:01 | SPC ---
SPC CVP LINE PICC INITIAL >5: 06/18/2019 12:00 AM PROCEDURE: Peripherally placed 46 cm single lumen power PICC line. PICC Line Placement: The left arm was prepped and draped in sterile fashion. One percent lidocaine was used for local anesthetic. Under fluoroscopic and ultrasound guidance, the brachial vein was patent and accessed with a micropun cture needle. A guide wire was then advanced into the left brachial vein. A vascular sheath was then advanced over a guide wire, and a single lumen PICC line was trimmed. The PICC line was then a dvanced into the central venous system. A final placement film demonstrates the tip of the catheter terminated in the caval-atrial junction. After confirmation of the catheter position, the catheter was sutured in place at the skin entry site . There was no immediate complication. Total fluoroscopic time 0.3 minutes. Total exposure 4025 mgray/sq cm IMPRESSION: Peripheral placement of a single lumen power PICC line into the left brachial vein using fluoroscopic and ultrasound guidance.
--- NOTE | 2019-06-18 12:07 | DIS ---
DATE OF ADMISSION: 06/15/2019 DATE OF DISCHARGE: 06/18/2019 PRIMARY CARE PHYSICIAN: Lucy Garcia, DO DISCHARGE DISPOSITION: Home with Home Health. PRIMARY DISCHARGE DIAGNOSIS: Osteomyelitis and septic arthritis of great toe interphalangeal joint with toe cellulitis. SECONDARY DISCHARGE DIAGNOSES: Chronic systolic heart failure, obesity with body mass index 35, diabetes type 2, coronary artery disease, hypertension, dyslipidemia, ischemic cardiomyopathy, normocytic normochromic anemia. PRIMARY PROCEDURE/OPERATION: PICC line placement, radiological investigation. Echocardiography showed EF 45% to 50% and diastolic dysfunction, moderate mitral regurgitation. MRI showed osteomyelitis and septic arthritis of interphalangeal joint of great toe on the right side. SIGNIFICANT LABORATORY DATA: WBC 6.9, hemoglobin 11.4, platelet 336. Sodium 136, potassium 4.2, BUN 12, creatinine 0.89, calcium 9.5. Culture from wound growing Staph aureus and gram-negative kathy. DISCHARGE MEDICATION: 1. Invanz 1 g IV daily till July 29, 2019. 2. Daptomycin 500 mg IV daily till July 29, 2019. Continue following medications, 1. Aspirin 325 mg daily. 2. Lipitor 40 mg daily. 3. Lasix 40 mg b.i.d. 4. Losartan 50 mg daily. 5. Potassium chloride 20 mEq p.o. daily. 6. Coreg 12.5 mg p.o. b.i.d. 7. Humalog insulin 8 units subcu a.c. 8. Lantus insulin 35 units subcu at bedtime. CONTRAINDICATION: None. CODE STATUS: Full code. INPATIENT DELIVERY COORDINATOR: Dr. Nieto was consulted while in hospital. Dr. Gray was following while in hospital. TEST RESULT PENDING ON DISCHARGE: None. ALLERGIES: NO KNOWN DRUG ALLERGIES. DISCHARGE PLAN: Posthospital, the patient will follow up with primary care physician in one week. The patient will follow up with Dr. Gray in 3 to 4 weeks and the patient is instructed to follow up with Dr. Nieto as instructed. HOSPITAL COURSE: A 69-year-old male with above-mentioned medical problem, who was admitted by Lexis Nance. Please see her H and P for further details. The patient was admitted for right great toe cellulitis and underlying infection. The patient had an x-ray done at [facility], which showed erosion involving fist metatarsal joint concerning for osteomyelitis. The patient was given vancomycin and Zosyn, and he was transferred to our hospital. While in hospital, we consulted Dr. Gray, and Dr. Gray recommended IV antibiotic therapy. PICC line was placed. We also consulted Dr. Nieto, and Dr. Nieto recommended to consider antibiotic therapy with daptomycin and Invanz. Dr. Gray recommended wound care with soap and water, and applying new gauze, wet-to-dry dressing. The patient also had MRI, which also confirmed osteomyelitis and septic arthritis of interphalangeal joint of the right great toe. The patient is planned for discharge with home health with outpatient IV antibiotic therapy and end of therapy is July 29, 2019. The patient is seen and examined at bedside today. PHYSICAL EXAMINATION: VITAL SIGNS: Currently, temperature 97.9, pulse 92, respiratory rate 18, saturation 98% on room air, blood pressure 139/75. Weight 260 pounds. GENERAL: The patient is currently alert, awake, in no acute distress. HEENT: Head; normocephalic, atraumatic. Eyes; pupils round, reactive to light. Extraocular muscle intact. ENT; oropharynx within normal limits. Moist mucous membranes. No oral lesion. No pharyngeal erythema no exudate. NECK: Supple. No JVD. No thyromegaly. No carotid bruit. No jugular venous distention. LUNGS: Clear to auscultation without any rhonchi or rales. CARDIAC: S1, S2. Regular without any murmur. No gallop. No rub. ABDOMEN: Soft. Bowel sounds present. Nontender. Nondistended. No organomegaly. No mass. EXTREMITIES: Right great toe cellulitis noted. NEUROLOGIC: Nonfocal examination. PLAN: The patient will be discharged home later on today once we have outpatient IV antibiotic therapy arrangement done. Job ID: [id number]
--- NOTE | 2019-06-18 12:14 | PDOC.HOSPP ---
- Subjective Encounter Date: 06/18/19 Encounter Time: 07:30 Subjective: Patient seen and examined. No new complaints. No overnight events - Objective Vital Signs & Weight: Vital Signs (12 hours) Temp Pulse Resp BP Pulse Ox 06/18/19 11:25 97.9 F 92 18 139/75 98 06/18/19 08:00 98.3 F 93 16 158/89 H 98 06/18/19 04:00 98.9 F 95 18 138/80 96 06/18/19 00:53 99.2 F Weight Admit Weight 260 lb Weight 260 lb I&O: 06/17/19 06/18/19 06/19/19 06:59 06:59 06:59 Intake Total 2880 2300 Output Total 1100 850 Balance 1780 1450 Result Diagrams: 06/18/19 07:38 06/18/19 05:51 Additional Labs: Accuchecks 06/18/19 06/17/19 06/17/19 05:38 20:03 15:32 POC Glucose 212 H 229 H 193 H 06/17/19 12:20 POC Glucose 202 H Hospitalist ROS - Review of Systems ENT: denies: ear pain, ear discharge, nose pain, nose discharge, nose congestion , mouth pain, mouth swelling, throat pain, throat swelling, other Respiratory: denies: cough, dry, shortness of breath, hemoptysis, SOB with excertion, pleuritic pain, sputum, wheezing, other Cardiovascular: denies: chest pain, palpitations, orthopnea, paroxysmal noc. dyspnea, edema, light headedness, other Gastrointestinal: denies: nausea, vomiting, abdominal pain, diarrhea, constipation, melena, hematochezia, other Genitourinary: denies: dysuria, frequency, incontinence, hematuria, retention, other Musculoskeletal: denies: neck pain, shoulder pain, arm pain, back pain, hand pain, leg pain, foot pain, other - Medication Medications: Active Medications Generic Name Dose Route Start Last Admin Trade Name Freq PRN Reason Stop Dose Admin Aspirin 325 mg 06/16/19 09:00 06/18/19 08:31 Aspirin PO Not Given DAILY [facility] Atorvastatin Calcium 40 mg 06/16/19 09:00 06/18/19 08:34 Lipitor PO 40 mg DAILY [facility] Administration Carvedilol 12.5 mg 06/15/19 21:00 06/18/19 08:33 Coreg PO 12.5 mg BID ROSA MARIA Administration Furosemide 40 mg 06/15/19 21:00 06/18/19 08:34 Lasix PO 40 mg BID ROSA MARIA Administration Insulin Glargine 35 units/ 0.35 mls @ 0 mls/hr 06/15/19 21:00 06/17/19 20:01 Miscellaneous Medication SC 0.35 mls HS ROSA MARIA Administration Cefepime HCl 2 gm/ Sodium 100 mls @ 200 mls/hr 06/15/19 21:00 06/18/19 08:33 Chloride IVPB 100 mls Q12HR ROSA MARIA Administration Insulin Human Lispro 0 units 06/17/19 08:08 06/18/19 11:31 Humalog SC 4 unit .MODERATE SLIDING SC PRN Administration Moderate Correctional Scale Losartan Potassium 50 mg 06/16/19 09:00 06/18/19 08:34 Cozaar PO 50 mg DAILY ROSA MARIA Administration Potassium Chloride 20 meq 06/16/19 09:00 06/18/19 08:33 K-Dur PO 20 meq DAILY ROSA MARIA Administration - Exam General Appearance: NAD, awake alert Eye: PERRL, anicteric sclera ENT: normocephalic atraumatic, no oropharyngeal lesions Neck: supple, symmetric, no JVD, no thyromegaly Heart: RRR, no murmur, no gallops, no rubs Respiratory: CTAB, no wheezes, no rales, no ronchi Gastrointestinal: soft, non-tender, non-distended, normal bowel sounds Extremities: no cyanosis, no clubbing, no edema Skin: normal turgor, no lesions Neurological: no focal deficits Musculoskeletal: normal tone, normal strength Psychiatric: normal affect, normal behavior Hosp A/P (1) Osteomyelitis Code(s): M86.9 - OSTEOMYELITIS, UNSPECIFIED Status: Acute Qualifiers: Osteomyelitis location: foot Laterality: right (2) Cellulitis of right lower extremity Code(s): L03.115 - CELLULITIS OF RIGHT LOWER LIMB Status: Acute (3) Diabetic infection of right foot Code(s): E11.628 - TYPE 2 DIABETES MELLITUS WITH OTHER SKIN COMPLICATIONS; L08.9 - LOCAL INFECTION OF THE SKIN AND SUBCUTANEOUS TISSUE, UNSP Status: Acute (4) Coronary artery disease Code(s): I25.10 - ATHSCL HEART DISEASE OF [place] CORONARY ARTERY W/O ANG PCTRS Status: Chronic (5) Dyslipidemia Code(s): E78.5 - HYPERLIPIDEMIA, UNSPECIFIED Status: Chronic (6) Essential hypertension Code(s): I10 - ESSENTIAL (PRIMARY) HYPERTENSION Status: Chronic (7) Ischemic cardiomyopathy Code(s): I25.5 - ISCHEMIC CARDIOMYOPATHY Status: Chronic (8) Obesity (BMI 30-39.9) Code(s): E66.9 - OBESITY, UNSPECIFIED Status: Chronic - Plan old records reviewed/req, plan discussed w/ family, continue antibiotics, 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
[2019-06-18 16:11] VITALS: BP 135/78; TEMP 97.7
== END 2019-06-18 19:18 | disposition home health service (06) | DRG 638 ==
LOC: SURG A 08:02
PROVIDERS: ADMIT Internal Medicine; ATTEND Internal Medicine
PROC: 02HV33Z Insertion of Infusion Device into Superior Vena Cava, Percutaneous Approach (ICD-10-PCS; principal; 2019-06-18)
PROC: B518YZA Fluoroscopy of Superior Vena Cava using Other Contrast, Guidance (ICD-10-PCS; 2019-06-18)
PROC: B548ZZA Ultrasonography of Superior Vena Cava, Guidance (ICD-10-PCS; 2019-06-18)
DX: E11.69 Type 2 diabetes mellitus with other specified complication (principal); M86.8X7 Other osteomyelitis, ankle and foot; M00.9 Pyogenic arthritis, unspecified; I50.22 Chronic systolic (congestive) heart failure; I25.10 Atherosclerotic heart disease of native coronary artery without angina pectoris; E78.5 Hyperlipidemia, unspecified; I11.0 Hypertensive heart disease with heart failure; E11.40 Type 2 diabetes mellitus with diabetic neuropathy, unspecified; I25.5 Ischemic cardiomyopathy; E66.9 Obesity, unspecified; L03.031 Cellulitis of right toe; D64.9 Anemia, unspecified; Z87.891 Personal history of nicotine dependence; Z68.35 Body mass index [BMI] 35.0-35.9, adult
CPT/HCPCS: 36415; 36416; 36569; 80048; 80053; 83605; 83735; 83880; 85025; 87070; 87077; 87186; 87205; 93005; 93010; 93306; C1751; J0692; J1815; J2543; J3490; S0028

== ENCOUNTER 2019-07-28 12:11 | Outpatient (CLI) | payer MEDICARE ==
--- NOTE | 2019-07-28 12:34 | RAD ---
EXAM: 2 views of the right foot HISTORY: Foot pain COMPARISON: None FINDINGS: 2 views of the right foot shows no evidence of acute fracture or dislocation. Degenerative changes are seen in the midfoot. There is partial absence of the distal tuft of the great toe distal phalanx which appears chronic. IMPRESSION: No evidence of acute osseous abnormality.
== END 2019-07-28 12:12 | disposition home or self-care (01) ==
LOC: BICRAD 12:11
PROVIDERS: ATTEND Internal Medicine Infectious Disease
DX: M86.271 Subacute osteomyelitis, right ankle and foot (principal)

== ENCOUNTER 2020-08-09 12:09 | Outpatient (CLI) | payer MEDICARE, MEDICAID ==
[~2020-08-09 12:09] MED LIST: Magnevist 469MG/ML 20 ML VIAL ONE
--- NOTE | 2020-08-09 13:47 | MRI ---
MRI of thebrain: 08/09/2020 COMPARISON:None available HISTORY:Mild cognitive impairment, memory loss for 6-7 months TECHNIQUE: Multiplanar multisequence MR imaging of thebrain with and without contrast Findings:The diffusion weighted imaging demonstrates no evidence for acute infarction. The axial grad ient echo imaging demonstrates no evidence for intracranial hemorrhage. The axial FLAIR imaging demonstrates numerous foci of periventricular, deep, and subcortical white ma tter hyperintensity, consistent with small vessel disease. There is multifocal increased T2 signal within the cerebellum consistent with areas of prior infarction, most prominent within the anterior s uperior aspect of the left cerebellar hemisphere. Arterial flow voids at the axial level of the skull base appear grossly unremarkable on the T2-weight ed imaging. The postcontrast imaging demonstrates no abnormal enhancement within the brain parenchyma. IMPRESSION:Small vessel disease and evidence of prior infarction. No acute findings.
== END 2020-08-09 12:10 | disposition home or self-care (01) ==
LOC: BICMRI 12:09
PROVIDERS: ATTEND Psychiatry & Neurology Neurology
DX: G31.84 Mild cognitive impairment of uncertain or unknown etiology (principal); I67.89 Other cerebrovascular disease
CPT/HCPCS: 70553; A9579

== ENCOUNTER 2020-08-26 17:40 | Emergency (ER) | payer MEDICARE, MEDICAID ==
[2020-08-26 20:35] LABS: Bacteria/HPF 4+ HPF (None Seen); Bilirubin Negative (Negative); Blood, Urine Negative (Negative); Clarity Clear (Clear); Glucose, Urine (Dipstick) Normal (Negative); Ketone, Urine Negative (Negative); Leukocyte 75 Leu/uL (Negative); Nitrite Negative (Negative); Protein, Urine (Dipstick) Negative (Neg-Trace); RBC/HPF 0-3 HPF (0-3); Specific Gravity, Urine 1.025 (1.002-1.036); Squamous Epithelial 0-3 HPF (0-3); Urobilinogen Normal mg/dL (Less than 2); pH, Urine 5.5 (5.0-9.0)
[2020-08-28 20:47] LABS: Chlam.trachomatis by PCR,Urine Not Detected (NotDetected)
== END 2020-08-26 21:52 | disposition home or self-care (01) ==
LOC: ERS 17:40
DX: N45.1 Epididymitis (principal); N39.0 Urinary tract infection, site not specified; I25.10 Atherosclerotic heart disease of native coronary artery without angina pectoris; E11.9 Type 2 diabetes mellitus without complications; E78.5 Hyperlipidemia, unspecified; E78.00 Pure hypercholesterolemia, unspecified; I11.0 Hypertensive heart disease with heart failure; I50.9 Heart failure, unspecified; E11.40 Type 2 diabetes mellitus with diabetic neuropathy, unspecified; Z79.4 Long term (current) use of insulin; Z79.82 Long term (current) use of aspirin; Z79.899 Other long term (current) drug therapy
CPT/HCPCS: 76870; 81003; 81015; 87077; 87086; 87186; 87491; 87591; 93976

== ENCOUNTER 2024-02-06 09:47 | Emergency (ER) | payer MEDICARE, MEDICAID | END 2024-02-06 11:22 | disposition home or self-care (01) | LOC: ERS 09:47 | DX: I48.91 Unspecified atrial fibrillation (principal); I25.10 Atherosclerotic heart disease of native coronary artery without angina pectoris; I11.0 Hypertensive heart disease with heart failure; I50.9 Heart failure, unspecified; E11.42 Type 2 diabetes mellitus with diabetic polyneuropathy; Z87.891 Personal history of nicotine dependence; Z79.4 Long term (current) use of insulin | CPT/HCPCS: 93005 ==

== ENCOUNTER 2024-03-18 12:16 | Inpatient (IN) | payer MEDICARE, MEDICAID ==
[2024-03-18] MEDS ORDERED: Ondansetron PF 4 MG/2 ML Vial IVP PRN (22:17)
[2024-03-18] MEDS ORDERED: Dextrose 5% in Water 1,000 ML IV PRN (22:26)
[2024-03-18] MEDS ORDERED: Glucagon 1 MG/ML KIT IM PRN (22:26)
[2024-03-18] MEDS ORDERED: Insulin Lispro 100 UNIT/ML 10 ML VIAL SC PRN (22:26)
[2024-03-18] MEDS ORDERED: Dextrose 50% Abboject 50 ML SYRINGE SLOW IVP PRN (22:26)
[2024-03-18 23:27] VITALS: BMI 33.5
[2024-03-19 04:38] LABS: #Basophils 0.03 10x3/uL (0.0-0.2); #Eosinophils Less than 0.03 10x3/uL (0.0-0.7); %Basophils 0.5 % (0.0-1.0); %Eosinophils 0.3 % (0.0-10.0); %Lymphocytes 31.6 % (21.0-51.0); %Monocytes 15.2 % (0.0-10.0); %Neutrophils 51.7 % (42.0-75.0); Hematocrit 29.8 % (42.0-52.0); Hemoglobin 9.2 g/dL (14.0-18.0); Mean Corpuscular HGB CONC 30.9 g/dL (32.0-36.0); Mean Corpuscular Hemoglobin 23.2 pg (27.0-31.0); Mean Corpuscular Volume 75.1 fL (78.0-98.0); Mean Platelet Volume 9.6 fL (7.4-10.4); Platelet Count 284 10x3/uL (130-400); Red Blood Cell (RBC) Count 3.97 mill/uL (4.70-6.10)
[2024-03-19 04:53] LABS: Anion Gap 13 mmol/L (10-20); BUN (Urea Nitrogen) 35 mg/dL (8.4-25.7); Calc. Creatinine Clearance 51 mL/min (70-130); Calcium 9.1 mg/dL (7.8-10.44); Carbon Dioxide 20 mmol/L (23-31); Chloride 108 mmol/L (98-107); Estimated GFR 35; Glucose 115 mg/dL (83-110); Potassium 4.8 mmol/L (3.5-5.1); Sodium 136 mmol/L (136-145)
[2024-03-19] MEDS ORDERED: Non-Formulary Item 1 EACH (Albuterol Sulfate [Proair Digihaler] 90 MCG Aer.Pw.Bas) INH PRN (08:07)
[2024-03-19] MEDS ORDERED: Cetirizine HCl 10 MG TAB PO PRN (08:07)
[2024-03-19] MEDS ORDERED: Loratadine 10 MG TAB PO PRN (08:19)
[2024-03-19] MEDS ORDERED: FLU (Fluad Triv) TS24-25 (65UP)/MF59C/PF 45 MCG/0.5 ML Syringe IM ONE (09:00)
[2024-03-19] MEDS ORDERED: Non-Formulary Item 1 EACH (Ferrous Sulfate [Ferrous Sulfate] 325 MG Tab) PO SCH (09:00)
[2024-03-19] MEDS ORDERED: Heparin 5,000 UNITS/ML VIAL SC SCH (09:00)
[2024-03-19] MEDS: Furosemide 40 MG (4 mL) VIAL SLOW IVP SCH (09:06)
[2024-03-19] MEDS: Brimonidine Tartrate 0.2% Ophth Soln 5 ml Bottle EA EYE SCH (09:06)
[2024-03-19] MEDS: Amiodarone 200 MG TAB PO SCH (09:06)
[2024-03-19] MEDS: Ezetimibe 10 MG TAB PO SCH (09:06)
[2024-03-19] MEDS: Ferrous Sulfate 325 MG TAB PO SCH (09:06)
[2024-03-19] MEDS: Apixaban 5 MG TAB PO SCH (09:06)
[2024-03-19] MEDS: Atorvastatin Calcium 40 MG TAB PO SCH (09:06)
[2024-03-19] MEDS: Memantine 10 MG TAB PO SCH (09:06)
[2024-03-19] MEDS: Donepezil HCl 10 MG TAB PO SCH (21:11)
[2024-03-20 08:30] LABS: #Basophils Less than 0.03 10x3/uL (0.0-0.2); %Basophils 0.3 % (0.0-1.0); %Eosinophils 0.9 % (0.0-10.0); %Lymphocytes 27.4 % (21.0-51.0); %Monocytes 12.8 % (0.0-10.0); Hematocrit 29.2 % (42.0-52.0); Hemoglobin 9.4 g/dL (14.0-18.0); Mean Corpuscular HGB CONC 32.2 g/dL (32.0-36.0); Mean Corpuscular Volume 71.4 fL (78.0-98.0); Mean Platelet Volume 9.7 fL (7.4-10.4); Platelet Count 279 10x3/uL (130-400); RBC Distribution Width 22.9 % (11.5-14.5); Red Blood Cell (RBC) Count 4.09 mill/uL (4.70-6.10)
[2024-03-20 08:53] LABS: Hemoglobin A1c 5.4 % (4.0-6.0)
[2024-03-20 08:56] LABS: Anion Gap 10 mmol/L (10-20); BUN (Urea Nitrogen) 31 mg/dL (8.4-25.7); Calc. Creatinine Clearance 55 mL/min (70-130); Calcium 8.9 mg/dL (7.8-10.44); Carbon Dioxide 21 mmol/L (23-31); Chloride 109 mmol/L (98-107); Estimated GFR 38; Glucose 49 mg/dL (83-110); Potassium 4.2 mmol/L (3.5-5.1); Sodium 136 mmol/L (136-145)
[2024-03-20 09:43] LABS: Anisocytosis SLIGHT = 6-15 cells HPF (0-5); Elliptocytes SLIGHT = 2-5 cells HPF (0-1); Microcytosis SLIGHT = 6-15 cells HPF (0-5); Platelet Adequacy Comment Platelets Normal; Polychromasia SLIGHT = 2-3 cells HPF (0-2); Schistocytes SLIGHT = 2-5 cells HPF (0-1); Target Cells SLIGHT = 2-5 cells HPF (0-1)
[2024-03-20] MEDS: Albumin 25% 25 GM (100 mL) BOT IVPB SCH (13:09)
[2024-03-21 04:20] LABS: #Basophils Less than 0.03 10x3/uL (0.0-0.2); %Basophils 0.3 % (0.0-1.0); %Eosinophils 0.9 % (0.0-10.0); %Lymphocytes 30.8 % (21.0-51.0); %Monocytes 11.9 % (0.0-10.0); %Neutrophils 55.8 % (42.0-75.0); Hematocrit 28.6 % (42.0-52.0); Hemoglobin 8.9 g/dL (14.0-18.0); Mean Corpuscular HGB CONC 31.1 g/dL (32.0-36.0); Mean Corpuscular Hemoglobin 22.7 pg (27.0-31.0); Mean Platelet Volume 10.4 fL (7.4-10.4); Platelet Count 264 10x3/uL (130-400); RBC Distribution Width 22.7 % (11.5-14.5); Red Blood Cell (RBC) Count 3.92 mill/uL (4.70-6.10)
[2024-03-21 04:48] LABS: Anion Gap 12 mmol/L (10-20); BUN (Urea Nitrogen) 34 mg/dL (8.4-25.7); Calc. Creatinine Clearance 49 mL/min (70-130); Calcium 8.9 mg/dL (7.8-10.44); Carbon Dioxide 20 mmol/L (23-31); Chloride 107 mmol/L (98-107); Estimated GFR 33; Glucose 129 mg/dL (83-110); Potassium 4.1 mmol/L (3.5-5.1); Sodium 135 mmol/L (136-145)
[2024-03-21] MEDS: guaiFENesin/Codeine 200 mg/20 mg 10 ml Cup PO PRN (11:02)
[2024-03-21] MEDS: Loperamide HCl 2 MG CAP PO PRN (11:02)
[2024-03-22 05:53] LABS: #Basophils 0.03 10x3/uL (0.0-0.2); %Basophils 0.4 % (0.0-1.0); %Lymphocytes 29.3 % (21.0-51.0); %Monocytes 11.4 % (0.0-10.0); %Neutrophils 57.2 % (42.0-75.0); Hematocrit 28.7 % (42.0-52.0); Hemoglobin 9.1 g/dL (14.0-18.0); Mean Corpuscular HGB CONC 31.7 g/dL (32.0-36.0); Mean Corpuscular Hemoglobin 22.5 pg (27.0-31.0); Mean Corpuscular Volume 70.9 fL (78.0-98.0); Mean Platelet Volume 10.4 fL (7.4-10.4); Platelet Count 279 10x3/uL (130-400); RBC Distribution Width 22.3 % (11.5-14.5); Red Blood Cell (RBC) Count 4.05 mill/uL (4.70-6.10)
[2024-03-22 06:55] LABS: Anion Gap 11 mmol/L (10-20); BUN (Urea Nitrogen) 35 mg/dL (8.4-25.7); Calc. Creatinine Clearance 55 mL/min (70-130); Calcium 8.7 mg/dL (7.8-10.44); Carbon Dioxide 20 mmol/L (23-31); Chloride 107 mmol/L (98-107); Estimated GFR 39; Glucose 116 mg/dL (83-110); Magnesium 2.6 mg/dL (1.6-2.6); Potassium 4.1 mmol/L (3.5-5.1); Sodium 134 mmol/L (136-145)
[2024-03-22] MEDS: Spironolactone 25 MG TAB PO SCH (11:54)
[2024-03-22] MEDS: hydrALAZINE 25 MG TAB PO SCH (14:59)
[2024-03-23 04:34] LABS: Anion Gap 11 mmol/L (10-20); BUN (Urea Nitrogen) 32 mg/dL (8.4-25.7); Calc. Creatinine Clearance 66 mL/min (70-130); Calcium 8.6 mg/dL (7.8-10.44); Carbon Dioxide 21 mmol/L (23-31); Chloride 107 mmol/L (98-107); Estimated GFR 49; Glucose 120 mg/dL (83-110); Sodium 135 mmol/L (136-145)
[2024-03-23 04:54] LABS: #Basophils Less than 0.03 10x3/uL (0.0-0.2); %Basophils 0.3 % (0.0-1.0); %Eosinophils 0.8 % (0.0-10.0); %Lymphocytes 24.3 % (21.0-51.0); %Monocytes 9.7 % (0.0-10.0); %Neutrophils 64.5 % (42.0-75.0); Hemoglobin 8.7 g/dL (14.0-18.0); Mean Corpuscular HGB CONC 31.1 g/dL (32.0-36.0); Mean Corpuscular Hemoglobin 22.8 pg (27.0-31.0); Mean Corpuscular Volume 73.3 fL (78.0-98.0); Platelet Count 258 10x3/uL (130-400); RBC Distribution Width 22.3 % (11.5-14.5); Red Blood Cell (RBC) Count 3.82 mill/uL (4.70-6.10)
[2024-03-23] MEDS: Spironolactone 25 MG TAB PO SCH (07:59)
[2024-03-24 05:00] LABS: #Basophils Less than 0.03 10x3/uL (0.0-0.2); %Basophils 0.3 % (0.0-1.0); %Eosinophils 1.2 % (0.0-10.0); %Lymphocytes 23.1 % (21.0-51.0); %Monocytes 10.6 % (0.0-10.0); %Neutrophils 64.4 % (42.0-75.0); Hematocrit 27.4 % (42.0-52.0); Hemoglobin 8.7 g/dL (14.0-18.0); Mean Corpuscular HGB CONC 31.8 g/dL (32.0-36.0); Mean Corpuscular Hemoglobin 23.1 pg (27.0-31.0); Mean Corpuscular Volume 72.9 fL (78.0-98.0); Mean Platelet Volume 10.1 fL (7.4-10.4); Platelet Count 260 10x3/uL (130-400); RBC Distribution Width 22.2 % (11.5-14.5); Red Blood Cell (RBC) Count 3.76 mill/uL (4.70-6.10)
[2024-03-24 05:23] LABS: Anisocytosis SLIGHT = 6-15 cells HPF (0-5); Hypochromia SLIGHT = 6-15 cells HPF (0-5); Microcytosis SLIGHT = 6-15 cells HPF (0-5); Platelet Adequacy Comment Platelets Normal; Polychromasia SLIGHT = 2-3 cells HPF (0-2); Target Cells SLIGHT = 2-5 cells HPF (0-1)
[2024-03-24 05:55] LABS: Anion Gap 15 mmol/L (10-20); BUN (Urea Nitrogen) 30 mg/dL (8.4-25.7); Calc. Creatinine Clearance 66 mL/min (70-130); Calcium 8.6 mg/dL (7.8-10.44); Carbon Dioxide 21 mmol/L (23-31); Chloride 107 mmol/L (98-107); Estimated GFR 46; Glucose 129 mg/dL (83-110); Potassium 4.1 mmol/L (3.5-5.1); Sodium 139 mmol/L (136-145)
[2024-03-24] MEDS: Empagliflozin 10 MG TAB PO SCH (09:58)
[2024-03-25] MEDS: Polyethylene Glycol 3350 17 GM Packet PO SCH (11:09)
[2024-03-25 13:59] VITALS: BMI 33.0
[2024-03-25] MEDS: Senokot S 8.6-50 MG TAB PO SCH (20:55)
[2024-03-25] MEDS: Acetaminophen 325 MG TAB PO PRN (20:56)
[2024-03-25] MEDS: Albuterol 200 PUFF INH INH PRN (22:52)
[2024-03-26 05:01] LABS: Anion Gap 13 mmol/L (10-20); BUN (Urea Nitrogen) 26 mg/dL (8.4-25.7); Calc. Creatinine Clearance 63 mL/min (70-130); Calcium 8.9 mg/dL (7.8-10.44); Carbon Dioxide 20 mmol/L (23-31); Chloride 109 mmol/L (98-107); Estimated GFR 46; Glucose 133 mg/dL (83-110); Magnesium 2.8 mg/dL (1.6-2.6); Potassium 4.1 mmol/L (3.5-5.1); Sodium 138 mmol/L (136-145)
[2024-03-26 16:45] VITALS: BP 110/68; TEMP 98.6
[2024-03-27] MEDS ORDERED: Torsemide 20 MG TAB PO SCH (09:00)
== END 2024-03-26 20:29 | disposition swing bed (61) | DRG 291 ==
LOC: 2SW 21:05 → OBSVTOIN 21:06
PROVIDERS: ADMIT Internal Medicine; ATTEND Family Medicine
DX: I13.0 Hypertensive heart and chronic kidney disease with heart failure and stage 1 through stage 4 chronic kidney disease, or unspecified chronic kidney disease (principal); I50.43 Acute on chronic combined systolic (congestive) and diastolic (congestive) heart failure; L97.919 Non-pressure chronic ulcer of unspecified part of right lower leg with unspecified severity; I48.19 Other persistent atrial fibrillation; N17.9 Acute kidney failure, unspecified; I48.92 Unspecified atrial flutter; L97.929 Non-pressure chronic ulcer of unspecified part of left lower leg with unspecified severity; I42.9 Cardiomyopathy, unspecified; I25.10 Atherosclerotic heart disease of native coronary artery without angina pectoris; E78.5 Hyperlipidemia, unspecified; E11.649 Type 2 diabetes mellitus with hypoglycemia without coma; E11.22 Type 2 diabetes mellitus with diabetic chronic kidney disease; F03.A0 Unspecified dementia, mild, without behavioral disturbance, psychotic disturbance, mood disturbance, and anxiety; N18.32 Chronic kidney disease, stage 3b; I44.7 Left bundle-branch block, unspecified; Z91.048 Other nonmedicinal substance allergy status; Z87.891 Personal history of nicotine dependence; Z79.01 Long term (current) use of anticoagulants; Z79.899 Other long term (current) drug therapy
CPT/HCPCS: 36415; 36416; 80048; 83036; 83735; 83880; 85025; 93306; 94664; 94760; 97139; J1940; P9047